=== PATIENT | female | born 1965 | race Caucasian/White ===

== ENCOUNTER → 2018-09-03 13:06 | Outpatient (CLI) | payer OTHER, SELFPAY ==
--- NOTE | 2018-09-03 | DI.MRI.S_ITS ---
PROCEDURE: MR KNEE LT WO CON INDICATIONS: LEFT KNEE SPRAIN TECHNIQUE: Noncontrast sagittal PD fast spin echo and T2 fast spin echo with fat saturation, sagittal 3-D FLASH with fat saturation; coronal T1 spin echo and PD fast spin echo with fat saturation, and axial PD fast spin echo with fat saturation through the knee. COMPARISON: None. FINDINGS: Image quality: Diagnostic. Bones and joint: There is diffuse marrow edema identified involving the lateral tibial plateau without a definite fracture line appreciated. Subchondral heterogeneity is noted. There is also subchondral marrow edema evident involving the medial femoral condyle. This marrow edema along the medial femoral condyle is significantly less apparent. No displaced fracture, dislocation, or suspicious osseous lesion is evident. Irregularity of the hyaline articular cartilage appears to be present within the medial and lateral tibiofemoral compartments. No large cartilaginous defects are evident. There is a small knee joint effusion without significant fluid extending into a Heredia cyst. Cruciate ligaments: The anterior and posterior cruciate ligaments are intact. Menisci: No displaced tears of the medial and lateral menisci are evident. The posterior root ligaments are intact. Medial structures: The medial collateral ligament is intact. The semimembranosus tendon insertion is intact. The imaged portions of the pes anserinus tendons are unremarkable. No significant fluid is contained within the pes anserinus bursa. Lateral structures: The popliteal tendon is intact. The lateral collateral ligament proper (fibular collateral ligament) and the proximal tibiofibular ligaments are intact. The distal aspect of the biceps femoris tendon and the iliotibial band are intact. Anterior structures: The quadriceps and patellar tendons are intact. There is mild edema within the superolateral aspect of the infrapatellar fat pad. IMPRESSION: 1. Prominent nonspecific marrow edema involving the lateral femoral condyle may represent bone contusion. The degree of marrow edema is more pronounced than expected for reactive/degenerative marrow change. The possibility of a developing osteochondral defect cannot be excluded. Spontaneous osteonecrosis of the knee may also have this appearance. Please correlate clinically. 2. No displaced fractures. 3. Subarticular marrow edema involving the medial femoral condyle may also be related to a similar process involving the lateral femoral condyle. 4. No meniscal or ligamentous injuries of the knee. 5. Small knee joint effusion. Dictated by: Emmett Messina M.D. on 09/03/2018 at 13:34 Approved by: Emmett Messina M.D. on 09/03/2018 at 13:37
== END ==
PROVIDERS: Family Provider Family Medicine Geriatric Medicine; PCP Physician Assistant Medical; Visit Provider Physician Assistant Medical
DX: S83.92XA Sprain of unspecified site of left knee, initial encounter (principal); M25.462 Effusion, left knee; R60.0 Localized edema
CPT/HCPCS: 73721